=== PATIENT | female | born 1945 | race Caucasian/White ===

== ENCOUNTER 2022-01-10 06:38 | Day surgery (SDC) | payer MEDICARE, OTHER ==
[2022-01-09 09:39] LABS: BASOPHILS % (AUTO) 0.5 % (0-1); EOSINOPHILS # (AUTO) 0.3 X10'3 (0-0.9); EOSINOPHILS % (AUTO) 4.5 % (0-6); HEMATOCRIT 38.7 % (35.0-45.0); HEMOGLOBIN 12.9 g/dl (12.0-16.0); LYMPHOCYTES # (AUTO) 1.1 X10'3 (1.1-4.8); LYMPHOCYTES % (AUTO) 18.2 % (21-51); MEAN CORPUSCULAR HEMOGLOBIN 29.5 PG (27.0-31.0); MEAN CORPUSCULAR HGB CONC 33.3 g/dL (33.0-36.5); MEAN CORPUSCULAR VOLUME 88.5 FL (78-98); MONOCYTES # (AUTO) 0.6 X10'3 (0-0.9); MONOCYTES % (AUTO) 10.2 % (2-12); NEUTROPHILS % (AUTO) 66.6 % (42-75); PLATELET COUNT 254 X10'3 (140-440); RED BLOOD COUNT 4.37 X10'6 (4.20-5.60); RED CELL DISTRIBUTION WIDTH 14.3 % (11.5-14.5)
[2022-01-09 09:47] LABS: ALBUMIN 3.7 G/DL (3.4-5.0); ANION GAP 5 (8-16); BLOOD UREA NITROGEN 11 MG/DL (7-18); BUN/CREATININE RATIO 11.1 (6.6-38.0); CALCIUM 9.4 MG/DL (8.5-10.1); CHLORIDE 107 MMOL/L (99-107); CREATININE 0.99 MG/DL (0.40-0.90); GLUCOSE 96 MG/DL (70-104); POTASSIUM 4.5 MMOL/L (3.5-5.1); SODIUM 143 MMOL/L (135-145); TOTAL CARBON DIOXIDE 30.7 MMOL/L (24-32); eGFR 55 ML/MIN
[2022-01-09 09:49] LABS: APTT 27 SECONDS (22-32)
[2022-01-10] VITALS (24 sets, daily range): BP systolic 110–156; BP diastolic 46–82
[~2022-01-10] VITALS: Ht 170.2 cm; Wt 50.8 kg
[2022-01-10] MEDS ORDERED: normal saline 1,000 ML IV SCH (06:55)
[2022-01-10] MEDS ORDERED: diphenhydrAMINE 25mg capsule PO PRN (06:55)
[2022-01-10] MEDS ORDERED: LORazepam 0.5 MG tablet PO PRN (06:55)
[2022-01-10] MEDS ORDERED: LEVO75TA PO (07:23)
[2022-01-10] MEDS ORDERED: IBUP-24 PO (07:23)
[2022-01-10] MEDS ORDERED: ASPI-1475 PO (07:23)
[2022-01-10] MEDS ORDERED: ATOR40TA72 PO (07:23)
[2022-01-10] MEDS ORDERED: CARV-50 PO (07:23)
[2022-01-10] MEDS ORDERED: TRAM50TA2 PO (07:23)
[2022-01-10] MEDS ORDERED: LIDOcaine 1%/PF 5ML 10 MG/ML VIAL ONE ×2 (08:51)
[2022-01-10] MEDS ORDERED: verapamil 2.5 mg/ml inj IV ONE (08:51)
[2022-01-10] MEDS ORDERED: midazolam 1 mg/ML 2ml injection ONE (08:51)
[2022-01-10] MEDS ORDERED: nitroGLYCERIN-Tridil 50MG/D5W 250 ML IV ONE (08:51)
[2022-01-10] MEDS ORDERED: iohexol 350MG/ML 100ml bottle IV ONE (08:52)
[2022-01-10] MEDS ORDERED: fentaNYL/PF 50MCG/1 ML 2ML syringe ONE (08:52)
[2022-01-10] MEDS ORDERED: heparin 1,000unit/ml 10ml vial 10 ML ONE (08:52)
[2022-01-10] MEDS ORDERED: morphine 10mg/ml inj. IV ONE (10:40)
[2022-01-10] MEDS ORDERED: MIDAZolam 1mg/ml 10ml vial IV ONE (10:40)
--- NOTE | 2022-01-10 10:47 | NUR ---
Pt returned from [employer], Dr. Estvees requesting SEAN bedside ALLIE to evaluate heart valve function.
--- NOTE | 2022-01-10 11:15 | NUR ---
ALLIE complete pt pooja procedure well, now resting quietly. Right radial vasc band intact. VSS, denies pain.
[2022-01-10 11:47] LABS: ISTAT Hct MIX 34 %PCV (35-48); ISTAT O2 SATURATION MIX VENOUS 93 % (60-80); ISTAT SOURCE BLNK
[2022-01-10 11:48] LABS: ISTAT Hct MIX 34 %PCV (35-48); ISTAT O2 SATURATION MIX VENOUS 70 % (60-80); ISTAT SOURCE BLNK
== END 2022-01-10 17:05 | disposition home or self-care (01) ==
LOC: SSTAY O 06:38
PROVIDERS: ATTEND Internal Medicine Cardiovascular Disease
DX: I25.10 Atherosclerotic heart disease of native coronary artery without angina pectoris (principal); I34.0 Nonrheumatic mitral (valve) insufficiency; E78.5 Hyperlipidemia, unspecified; E03.9 Hypothyroidism, unspecified; I42.0 Dilated cardiomyopathy; K21.9 Gastro-esophageal reflux disease without esophagitis; Z90.710 Acquired absence of both cervix and uterus; Z79.899 Other long term (current) drug therapy; Z79.01 Long term (current) use of anticoagulants; Z98.890 Other specified postprocedural states
CPT/HCPCS: 36415; 76937; 80048; 82803; 85014; 85025; 85610; 85730; 93005; 93312; 93325; 93460; 94799; 99152; 99153; C1751; C1769; J1644; J2250; J2274; J3010; J3490; J7030; Q0163; Q9967; A4620; A6258; A6402

== ENCOUNTER 2022-11-28 12:39 | Outpatient (CLI) | payer OTHER, MEDICARE ==
[~2022-11-28 12:39] MED LIST: ASPI-1475 PO; ATOR40TA72 PO; BARIUM SULFATE 340 ML SUSP.RECON***PROCEDURE AREA ONLY**DONT ENTER PO ONE; CARV-50 PO; IBUP-24 PO; LEVO75TA PO; TRAM50TA2 PO
== END 2022-11-28 23:59 | disposition home or self-care (01) ==
LOC: RAD 12:39
PROVIDERS: ATTEND Dietitian, Registered
DX: R13.14 Dysphagia, pharyngoesophageal phase (principal); K21.9 Gastro-esophageal reflux disease without esophagitis
CPT/HCPCS: 74230

== ENCOUNTER 2024-03-21 06:43 | Emergency (ER) | payer MEDICARE, OTHER ==
[~2024-03-21] VITALS: Ht 170.2 cm; Wt 39.7 kg
[~2024-03-21 06:43] MED LIST changes: -ASPI-1475 PO; -BARIUM SULFATE 340 ML SUSP.RECON***PROCEDURE AREA ONLY**DONT ENTER PO ONE; -CARV-50 PO; +CARV3.122 PO; +LEVO25TA2 PO; -LEVO75TA PO
[2024-03-21 06:44] VITALS: BP 132/80; PULSE 108; O2SAT 98
[2024-03-21 07:21] LABS: STREP A SCREEN NEGATIVE (Neg)
[2024-03-21] MEDS: dexamethasone 4mg tablet PO ONE (07:46)
[2024-03-21 07:47] VITALS: RESP 16
[2024-03-21] MEDS: ketorolac trometh 15mg/ml vial 15 MG/ML ML IM ONE (07:47)
[2024-03-21 08:58] VITALS: TEMP 98
== END 2024-03-21 08:59 | disposition home or self-care (01) ==
LOC: ER 06:43
DX: U07.1 COVID-19 (principal); J02.9 Acute pharyngitis, unspecified; R51.9 Headache, unspecified; Z88.8 Allergy status to other drugs, medicaments and biological substances; Z79.899 Other long term (current) drug therapy
CPT/HCPCS: 36415; 87081; 87811; 87880; 96372; 99283; J1885